=== PATIENT | male | born 1995 | race African-American/Black ===

== ENCOUNTER 2022-02-13 14:14 | Emergency (ER) | payer OTHER ==
[~2022-02-13] VITALS: Ht 162.6 cm; Wt 59.1 kg
[2022-02-13 14:32] VITALS: BP 109/70
[2022-02-13 15:30] LABS: COVID AG,FIA SOURCE NASAL SWAB
== END 2022-02-13 17:38 | disposition home or self-care (01) ==
LOC: EMS 14:18
DX: Z20.822 Contact with and (suspected) exposure to COVID-19 (principal)
CPT/HCPCS: 99283